=== PATIENT | male | born 1985 | race Caucasian/White ===

== ENCOUNTER 2016-08-12 04:23 | Emergency (ER) | payer SELFPAY ==
[2016-08-12 05:04] LABS: Hematocrit 45.1 % (42.0-52.0); Hemoglobin 15.7 gm/dL (13.5-18.0); Mean Cell Volume 86.1 fl (78-100); Mean Corpuscular Hgb Conc 34.8 g/dl (32-36); Mean Platelet Volume 9.8 fl (6.0-9.5); Neutrophil # 6.1 K/mm3 (1.3-6.0); Neutrophil % 66.7 % (42-75.0); Platelet Count 251 K/mm3 (150-450); Red Blood Count 5.24 M/mm3 (4.7-6.0); Red Cell Distribution Width 12.6 % (11.5-14.0); White Blood Count 9.2 K/mm3 (4.0-10.5)
--- NOTE | 2016-08-12 05:06 | ERNOTE ---
Chest Pain/Cardiac HPI Chief Complaint: Chest Pain Time Seen by Provider: 08/12/16 04:45 Source: patient, family Exam Limitations: no limitations Immunizations: IMMUNIZATION HX Immunizations Up to Date Yes History of Influenza Vaccine Yes Allergies/Adverse Reactions: Allergies No Known Allergies Allergy (Unverified 08/12/16 04:39) Home Medications: HOME MEDICATIONS hydrOXYzine PAMOATE [Hydroxyzine Pamoate] 25 mg PO QID PRN #30 capsule 08/12/16 [Last Taken Unknown] Narrative: Pt states his karlie broke up with him last month just before their planned wedding. Since then he has moved back here from [place] and has experienced chest pain that is left sided. Accompanied by jaw pain and low back pain. Chest pain onset Wednesday 3 days ago. Timing: constant Severity/Quality: moderate, aching Location: left chest Chest Pain Radiation: jaw Activities at Onset: emotional stress Modifying Factors - Improves: Present: nothing Modifying Factors - Worsens: Present: nothing Nitro Today/Relief: no nitro taken today Aspirin Treatment Today: no aspirin today Associated Symptoms: Present: nausea Review of Systems - Review of Systems Constitutional: Present: chills, weakness. Absent: recent illness EYE: Present: no symptoms reported ENT: Present: no symptoms reported Respiratory: Present: shortness of breath Cardiology: Present: See HPI Gastrointestinal/Abdominal: Present: nausea, eating less Genitourinary: Present: no symptoms reported Musculoskeletal: Present: back pain Neurological: Present: anxiety, depressed Endocrine: Present: intolerance to heat, intolerance to cold Hematologic/Lymphatic: Present: no symptoms reported Psych: Present: no symptoms reported - Patient's Past Medical History Patient History - Medical: No pertinent hx Patient History - Cancer: No Hx of Cancer Patient History - Surgical Procedures: No surgical history - Family History Mother Family History - Medical: Anxiety, Depression Family History - Cardiac/Respiratory: No pertinent hx Family History - Cancer: No pertinent family hx Father Family History - Medical: No pertinent hx Family History - Cardiac/Respiratory: No pertinent hx Family History - Cancer: No pertinent family hx - Social History Living Situations: home Abuse History: No History of abuse Psych History: No pertinent hx Smoking Status: Current every day smoker Patient requests Smoking Cessation Consult: No Initiate information on Smoking Cessation: No Alcohol Use: occasionally Drug Use: none - Immunizations Immunizations Up to Date: Yes History of Influenza Vaccine: Yes Physical Exam - Physical Exam General Appearance: Present: wd/wn, alert, mild distress Eye Exam: Normal inspection: bilateral, PERRL: bilateral, EOMI: bilateral Ears, Nose, Throat: Present: normal ENT inspection Neck: Present: normal inspection, nontender Respiratory: Present: no respiratory distress, normal breath sounds, no accessory muscle use, chest nontender, lungs clear Cardiovascular/Chest: Present: regular rate, rhythm, no murmur, normal peripheral pulses Gastrointestinal/Abdominal: Present: normal bowel sounds, tenderness - diffuse. Absent: guarding, rebound Back Exam: Present: CVA tenderness (R), CVA tenderness (L) Extremity Exam: Present: normal inspection, normal range of motion, no edema Neurological Exam: Present: alert, oriented, no motor/sensory deficits Skin Exam: Present: normal color, warm/dry ED Progress - Results and Orders Patient's Lab Results:: I have reviewed the patient's lab results. Results and Orders: Laboratory Tests 08/12/16 08/12/16 05:04 05:04 WBC 9.2 Hgb 15.7 Hct 45.1 Plt Count 251 Sodium 137 Potassium 3.9 Chloride 100 Carbon Dioxide 27.5 Anion Gap 13.4 BUN 15 Creatinine 1.01 Est GFR (Non-Af Amer) 92 BUN/Creatinine Ratio 14.9 Random Glucose 86 Total Bilirubin 0.6 AST 15 ALT 16 L Alkaline Phosphatase 74 Troponin I Less than 0.017 Total Protein 7.6 Albumin 3.8 - Vital Signs Patient's Vital Signs:: I have reviewed the patient's vital signs. Vital Signs: Vital Signs 08/12/16 04:27 Temperature 36.5 C Pulse Rate 70 Respiratory 16 Rate Blood Pressure 117/85 O2 Sat by Pulse 94 Oximetry - EKG EKG read: Interp. by me EKG Comments: sinus bradycardia - X-Ray X-Ray #1 X-Ray: chest Interpretation: Interp. by me X-ray Comments: No acute cardiopulmonary abnormality - Progress/Reassessment Chief Complaint: Chest Pain Progress:: Unchanged Departure - Departure Clinical Impression: Anxiety Disposition: Home self-care Condition: Good Instructions: Nonspecific Chest Pain, [id number] Prescriptions: hydrOXYzine PAMOATE [Hydroxyzine Pamoate] 25 mg PO QID PRN #30 capsule PRN Reason: Anxiety
[2016-08-12 05:22] LABS: ALT 16 U/L (19-67); AST 15 U/L (0-48); Albumin * 3.8 gm/dl (3.4-5.0); Alkaline Phosphatase * 74 U/L (50-170); Anion Gap 13.4 mmol/L (6.8-13.8); BUN/Creatinine Ratio 14.9 (9.0-21.6); Bilirubin, Total 0.6 mg/dL (0.0-1.1); Blood Urea Nitrogen 15 mg/dL (6-23); Ca. Corrected For Albumin 8.5 mg/dL (8.4-10.2); Calcium * 8.7 mg/dL (7.9-10.9); Carbon Dioxide 27.5 mmol/L (24-32.6); Chloride 100 mmol/L (97-106); Glucose * 86 mg/dL (70-110); Potassium 3.9 mmol/L (3.4-4.6); Sodium 137 mmol/L (132-142); Total Protein 7.6 gm/dL (6.2-8.2)
[2016-08-12 05:23] LABS: Troponin I Less than 0.017 ng/ml (0.00-0.10)
[2016-08-12] MEDS ORDERED: hydrOXYzine PAMOATE 25 MG CAPSULE PO ONE (05:38)
[2016-08-12] MEDS ORDERED: hydrOXYzine PAMOATE 25 MG CAPSULE ONE (05:39)
--- OUTSIDE RECORDS SUMMARY | 2016-08-12 05:47 | XMS REPORT | Continuity of Care Document ---
:1985 Author Organization [facility] ([facility]) Address [address] [place] [address] Phone [phone] Care Team Providers Name Role Phone Unavailable Primary Care Provider Unavailable Source Comments This disclosure is being made pursuant to the Care Everywhere program, applicable federal and state laws, and may not contain all informaitonavailable regarding this patient.[facility] ([facility]) Active Allergies and Adverse Reactions Not on File Current Medications Not on file Active Problems Not on file Social History Tobacco Use Types Packs/Day Years Used Date Never Assessed Plan of Care Health Maintenance Due Date Last Done Comments Hepatitis B Vaccine (1 of 3 - Primary Series) 1985 Tdap Vaccine 02/01/1996 Lipid Disorder Screening 2003 MMR Vaccine 2003 Td Vaccine 2003 Varicella Vaccine (1 of 2 - Adult - No Evidence of 2003 Immunity) Influenza Vaccine: Seasonal (#1) 12/02/2015 Results from Last 3 Months Not on file
[2016-08-12 06:07] VITALS: BP 109/66
== END 2016-08-12 05:50 | disposition home or self-care (01) ==
LOC: ER 04:23
DX: F41.9 Anxiety disorder, unspecified (principal); F17.210 Nicotine dependence, cigarettes, uncomplicated

== ENCOUNTER 2016-08-24 10:43 | Emergency (ER) | payer SELFPAY ==
[2016-08-24 11:10] LABS: Urine Bilirubin 1 mg/dl (NEGATIVE); Urine Blood Negative /ul (NEGATIVE); Urine Ketone 5 mg/dL (NEGATIVE); Urine Nitrite Negative (NEGATIVE); Urine Protein Negative (NEGATIVE)
[2016-08-24 11:21] LABS: Urine Appearance Clear; Urine Color Dark Yellow
[2016-08-24 11:22] LABS: Urine Bacteria TRACE; Urine Mucus Few - 1+; Urine RBC None Seen /hpf (0-5); Urine WBC None Seen /hpf (0-5)
[2016-08-24 11:28] LABS: Cocaine Ur Negative (NEGATIVE); Urine Barbiturate Negative (NEGATIVE); Urine Benzodiazepines Negative (NEGATIVE); Urine Opiates Negative (NEGATIVE); Urine PCP Negative (NEGATIVE); Urine THC Negative (NEGATIVE)
[2016-08-24] MEDS ORDERED: PROMETHAZINE HCL 25 MG in DEXTROSE 5 % IN WATER 50 ML IV ONE ×2 (11:28)
[2016-08-24] MEDS ORDERED: KETOROLAC TROMETHAMINE 30 MG/ML VIAL IV ONE (11:28)
--- NOTE | 2016-08-24 11:29 | ERNOTE ---
Medical Problem HPI - Narrative Date of Service: 08/24/16 - General Chief Complaint: Anxiety Time Seen by Provider: 08/24/16 11:04 Source: patient, family, RN notes reviewed Exam Limitations: no limitations - Immun/Allergies/Home Medications Immunizations: IMMUNIZATION HX Immunizations Up to Date Yes History of Influenza Vaccine No Hx Pneumococcal Vaccination No Allergies/Adverse Reactions: Allergies No Known Allergies Allergy (Verified 08/24/16 10:57) Home Medications: HOME MEDICATIONS hydrOXYzine PAMOATE [Hydroxyzine Pamoate] 25 mg PO QID PRN #30 capsule 08/24/16 [Last Taken Unknown] - Pain Score Pain Score #1 Pain Score: 5 - RLQ - History of Present History Narrative: Silverio is a 31 year old male brought to the ED by his mother for ongoing anxiety related to 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 He was seen here about 2 weeks ago and prescribed hydroxyzine. He reports that this helped but is out of it. He also reports scrotal pain that has been going on for about 2 months. He also began having RLQ abdominal pain last evening. He has been having diarrhea for some time, but has not had a bowel movement today. He has not taken anything for pain. He denies any fevers, but reports not feeling well in general due to his anxiety. Review of Systems - Review of Systems Constitutional: Present: fatigue, malaise, weight loss. Absent: fever, chills EYE: Present: no symptoms reported ENT: Present: no symptoms reported Respiratory: Absent: shortness of breath, cough Cardiology: Absent: chest pain, palpitations, syncope Gastrointestinal/Abdominal: Present: nausea, abdominal pain, eating less, drinking less. Absent: vomiting Genitourinary: Present: pain. Absent: frequency, dysuria, discharge Musculoskeletal: Absent: muscle pain, joint pain Skin: Present: lesions - chronic - genital warts. Absent: rash Neurological: Absent: headache, dizziness/light-headedness Endocrine: Present: no symptoms reported Hematologic/Lymphatic: Absent: easy bruising, easy bleeding Psych: Present: anxiety, depressed - Patient's Past Medical History Patient History - Medical: ADHD, Anxiety, Other - Genital wars Patient History - Cardiac/Respiratory: No pertinent hx Patient History - Cancer: No Hx of Cancer Patient History - Surgical Procedures: No surgical history Patient History - Other: None - Family History Mother Family History - Medical: Anxiety, Depression Family History - Cardiac/Respiratory: No pertinent hx Family History - Cancer: No pertinent family hx Father Family History - Medical: No pertinent hx Family History - Cardiac/Respiratory: No pertinent hx Family History - Cancer: No pertinent family hx - Social History Living Situations: parents Abuse History: No History of abuse Psych History: Hx of Anxiety Smoking Status: Current every day smoker Cigarettes Packs Per Day: 0.5 Have you smoked in the past 12 months: Yes Do you dip or chew tobacco: No Alcohol Use: occasionally Drug Use: none - Immunizations Immunizations Up to Date: Yes Hx Pneumococcal Vaccination: No History of Influenza Vaccine: No Physical Exam - Physical Exam General Appearance: Present: wd/wn, alert, anxious, thin Neck: Present: normal inspection, nontender, supple, full range of motion Respiratory: Present: no respiratory distress, normal breath sounds, no accessory muscle use, lungs clear Cardiovascular/Chest: Present: regular rate, rhythm, no murmur, normal peripheral pulses Gastrointestinal/Abdominal: Present: nondistended, soft, no organomegaly, tenderness - RLQ, abnormal bowel sounds - hyeractive, rebound. Absent: guarding , mass, hernia Male Genitals Exam: Present: epididymal tenderness, lesions - genital warts, testicular tenderness (R), testicular tenderness (L). Absent: erythema, urethral discharge Back Exam: Present: normal inspection, no CVA tenderness Neurological Exam: Present: alert, oriented, no motor/sensory deficits, other - depressed, anxious appearing. Absent: normal mood/affect Skin Exam: Present: normal color, warm/dry ED Progress - Results and Orders Patient's Lab Results:: I have reviewed the patient's lab results. - Vital Signs Patient's Vital Signs:: I have reviewed the patient's vital signs. Vital Signs: Vital Signs 08/24/16 08/24/16 10:48 11:03 Temperature 36.6 C Pulse Rate 90 90 Respiratory 17 Rate Blood Pressure 127/78 O2 Sat by Pulse 99 Oximetry - CT/Ultrasound CT/Ultrasound Narrative: Technique: 5 mm axial imaging from the lung bases through the ischial tuberosities performed with IV contrast enhancement. Oral bowel contrast was utilized for the exam. Comparison: None. Findings: Liver appears within normal limits. Spleen is within normal limits. Gallbladder appears within normal limits. Pancreas appears within normal limits. Adrenal glands are within normal limits. Kidneys appear within normal limits. There is no bowel obstruction or free air. There is no significant free fluid or ascites. Appendix appears within normal limits. No focal abnormal inflammatory changes identified. There is overall mild diffuse increased small bowel and large bowel gas. Again there is no evidence for obstruction with bowel gas and stool seen to the rectum. No inflammatory changes identified. IMPRESSION: MILD NONSPECIFIC ILEUS. NO ACUTE INTRA-ABDOMINAL OR PELVIC PATHOLOGY OTHERWISE IDENTIFIED. Electronically signed by Danis Warren M.D.. - Progress/Reassessment Chief Complaint: Anxiety Progress:: Improved Progress Note-Subjective: 08/24/16 13:22 Pain/nausea improved after Toradol and Phenergan. Tolerated oral contrast for CT without difficulty. To CT now. Plan - Plan Plan: CT negative for appendicitis. Labwork unremarkable. Treatment initiated for epididymitis. Refill given for hydroxyzine for anxiety. Discussed need for a PCP as this should not be managed chronically in the ED. Chlamydia/GC pending. Departure - Departure Clinical Impression: Anxiety, Epididymitis, bilateral Disposition: Home Follow Up Needed Condition: Stable Instructions: Epididymitis, Panic Attacks, [id number] Additional Instructions: Establish with a primary care provider for ongoing treatment of anxiety Prescriptions: hydrOXYzine PAMOATE [Hydroxyzine Pamoate] 25 mg PO QID PRN #30 capsule PRN Reason: Anxiety
[2016-08-24] MEDS ORDERED: DIATRIZOATE MEGLU/DIATRIZO SOD 30 ML BTL PO ONE (11:30)
[2016-08-24] MEDS ORDERED: DIATRIZOATE MEGLU/DIATRIZO SOD 30 ML BTL ONE (11:31)
[2016-08-24] MEDS ORDERED: KETOROLAC TROMETHAMINE 30 MG/ML VIAL ONE (11:43)
--- OUTSIDE RECORDS SUMMARY | 2016-08-24 11:43 | XMS REPORT | Continuity of Care Document ---
:1985 Author Organization [facility] ([facility]) Address [address] [place] [address] Phone [phone] Care Team Providers Name Role Phone Unavailable Primary Care Provider Unavailable Source Comments This disclosure is being made pursuant to the Care Everywhere program, applicable federal and state laws, and may not contain all informaitonavailable regarding this patient.[facility] ([facility]) Active Allergies and Adverse Reactions Not on [...]
[2016-08-24 11:51] LABS: Hematocrit 44.6 % (42.0-52.0); Hemoglobin 15.4 gm/dL (13.5-18.0); Mean Cell Volume 86.4 fl (78-100); Mean Corpuscular Hemoglobin 29.8 pg (27-31); Mean Corpuscular Hgb Conc 34.5 g/dl (32-36); Mean Platelet Volume 10.5 fl (6.0-9.5); Neutrophil # 5.5 K/mm3 (1.3-6.0); Neutrophil % 64.7 % (42-75.0); Platelet Count 259 K/mm3 (150-450); Red Blood Count 5.16 M/mm3 (4.7-6.0); Red Cell Distribution Width 12.7 % (11.5-14.0); White Blood Count 8.5 K/mm3 (4.0-10.5)
[2016-08-24 12:11] LABS: Anion Gap 10.5 mmol/L (6.8-13.8); BUN/Creatinine Ratio 8.8 (9.0-21.6); Bilirubin, Total 0.5 mg/dL (0.0-1.1); Ca. Corrected For Albumin 9.2 mg/dL (8.4-10.2); Calcium * 9.5 mg/dL (7.9-10.9); Carbon Dioxide 30.7 mmol/L (24-32.6); Potassium 4.2 mmol/L (3.4-4.6); Total Protein 7.6 gm/dL (6.2-8.2)
[2016-08-24] MEDS ORDERED: DOXYCYCLINE HYCLATE 100 MG TABLET PO ONE (14:14)
[2016-08-24] MEDS ORDERED: DOXYCYCLINE HYCLATE 100 MG TABLET ONE (14:25)
[2016-08-24 14:38] VITALS: BP 115/77
== END 2016-08-24 14:42 | disposition home or self-care (01) ==
LOC: ER 10:43
DX: N45.1 Epididymitis (principal); F41.9 Anxiety disorder, unspecified; F17.210 Nicotine dependence, cigarettes, uncomplicated

== ENCOUNTER 2016-12-22 13:10 | Emergency (ER) | payer OTHER ==
--- NOTE | 2016-12-22 15:30 | ERNOTE ---
Upper Extremity HPI - Narrative Date of Service: 12/22/16 - General Extremities Pain Location: shoulder: left Time Seen by Provider: 12/22/16 15:24 Source: patient Exam Limitations: no limitations - Immun/Allergies/Home Medications Immunizations: IMMUNIZATION HX Immunizations Up to Date Yes History of Influenza Vaccine Yes Hx Pneumococcal Vaccination No Allergies/Adverse Reactions: Allergies Allergy/AdvReac Type Severity Reaction Status Date / Time No Known Allergies Allergy Verified 08/24/16 10:57 Home Medications: HOME MEDICATIONS hydrOXYzine PAMOATE [Hydroxyzine Pamoate] 25 mg PO QID PRN #30 capsule 08/24/16 [Last Taken Unknown] Cyclobenzaprine HCl [Flexeril] 10 mg PO TID PRN #20 tab 12/22/16 [Last Taken Unknown] - History of Present Illness Narrative: Patient presents to the ED for left shoulder injury. He relates he was using a wheeled cart at work when it slipped and it pulled his left arm. There was by report a "pop" in his left shoulder. There was immediate pain in his left shoulder and his entire left arm felt numb. [place] left shoulder pain. No other injuries. Right handed. no other CP or SOB. Pain can be severe with movement, Occurred: just prior to arrival Location of Incident: work Loss of Consciousness: Reports: no loss of consciousness Modifying Factors - (Improves): Reports: rest Modifying Factors - (Worsens): Reports: movement Associated Symptoms: Reports: tingling, numbness distally Other Injuries: Reports: none Prior Treament: Denies: recently seen Review of Systems - Review of Systems Constitutional: Absent: fever Respiratory: Absent: shortness of breath Cardiology: Absent: chest pain Gastrointestinal/Abdominal: Absent: abdominal pain Skin: Present: other - no laceration Neurological: Present: See HPI - Patient's Past Medical History Patient History - Medical: ADHD, Anxiety, Other Patient History - Cardiac/Respiratory: No pertinent hx Patient History - Cancer: No Hx of Cancer Patient History - Surgical Procedures: No surgical history Patient History - Other: None - Family History Mother Family History - Medical: Anxiety, Depression Family History - Cardiac/Respiratory: No pertinent hx Family History - Cancer: No pertinent family hx Father Family History - Medical: No pertinent hx Family History - Cardiac/Respiratory: No pertinent hx Family History - Cancer: No pertinent family hx - Social History Living Situations: home Abuse History: No History of abuse Psych History: Hx of Anxiety Smoking Status: Current every day smoker Have you smoked in the past 12 months: Yes Alcohol Use: occasionally Drug Use: none - Immunizations Immunizations Up to Date: Yes Hx Pneumococcal Vaccination: No History of Influenza Vaccine: Yes Physical Exam - Physical Exam General Appearance: Present: alert, no apparent distress Head Exam: Present: normal inspection, no evidence of injury Eye Exam: Normal inspection: bilateral, PERRL: bilateral Ears, Nose, Throat: Present: normal ENT inspection Neck: Present: normal inspection Respiratory: Present: no respiratory distress, lungs clear Cardiovascular/Chest: Present: regular rate, rhythm, normal peripheral pulses, other - strong rasial pulse Gastrointestinal/Abdominal: Present: normal bowel sounds, nontender, soft Back Exam: Present: normal range of motion Extremity Exam: Present: normal inspection, other - tenderness diffusely around left shoulder musculature. No clinical signs of disl;ocaiton. No other point bone tenderness noted. No compartment syndrome. No elbow tenderness. Strong radial pulse Neurological Exam: Present: alert, normal mood/affect, other - pain limits exam but no clear focal motor deficits. Subjective decreased sensation entire left arm to LT, including lateral deltoid. Skin Exam: Present: normal color, warm/dry ED Progress - Vital Signs Patient's Vital Signs:: I have reviewed the patient's vital signs. Vital Signs: Vital Signs 12/22/16 12/22/16 13:46 15:21 Temperature 36.8 C 36.6 C Pulse Rate 86 61 Respiratory 16 16 Rate Blood Pressure 133/73 142/64 O2 Sat by Pulse 99 96 Oximetry - X-Ray X-Ray #1 X-Ray: shoulder Interpretation: Interp. by me X-ray Comments: I reviewed official x-ray report - Progress/Reassessment Chief Complaint: Shoulder Injury/Pain Progress Note-Subjective: 12/22/16 16:07 Will treat conservatively. No Fx. ccannot r/o nerve injury/internal derangement. Sling with ortho f/u. Pt agreeable. I discussed warning signs and reasons to return as well as the need for close f/u. Departure Clinical Impression: Musculoskeletal pain - Departure Disposition: Home self-care Condition: Stable Instructions: Shoulder Pain, [id number] Additional Instructions: Sling for comfort. Call ortho for an appointment. No driving with medications. Ibuprofen. Return for increased pain, numbness, tingling, weakness or if your condition worsens or changes in any way. Prescriptions: Cyclobenzaprine HCl [Flexeril] 10 mg PO TID PRN #20 tab PRN Reason: MUSCLE SPASMS
[2016-12-22] MEDS ORDERED: ORPHENADRINE CITRATE 30 MG/ML VIAL IM ONE (15:42)
[2016-12-22] MEDS ORDERED: KETOROLAC TROMETHAMINE 30 MG/ML VIAL IM ONE (15:42)
[2016-12-22] MEDS ORDERED: ORPHENADRINE CITRATE 30 MG/ML VIAL ONE (15:45)
[2016-12-22] MEDS ORDERED: KETOROLAC TROMETHAMINE 30 MG/ML VIAL ONE (15:45)
[2016-12-22 17:06] VITALS: BP 119/73
== END 2016-12-22 16:21 | disposition home or self-care (01) ==
LOC: ER 13:10
DX: M79.1 Myalgia (principal); F17.200 Nicotine dependence, unspecified, uncomplicated; Y92.512 Supermarket, store or market as the place of occurrence of the external cause; X50.9XXA Other and unspecified overexertion or strenuous movements or postures, initial encounter; Y99.0 Civilian activity done for income or pay